=== PATIENT | male | born 1955 | race Caucasian/White ===

== ENCOUNTER 2020-08-16 10:46 | Inpatient (IN) ==
[2020-08-16] MEDS ORDERED: LIDOCAINE 1% 20 ML VIAL SQ ONE (10:47)
[2020-08-16] MEDS ORDERED: MIDAZOLAM 2 MG/2 ML VIAL ONE (10:59)
[2020-08-16] MEDS ORDERED: fentaNYL 100 MCG/2 ML VIAL IV ONE ×2 (10:59→15:14)
[2020-08-16] MEDS ORDERED: PIPERACILLIN SODIUM/TAZOBACTAM 3.375 GM in DEXTROSE 5% IN WATER 50 ML IV ONE (11:37)
[2020-08-16 12:52] LABS: Basophils # (Auto) 0.03 K/mcL (0.00-0.20); Basophils % (Auto) 0.3 % (0.0-2.0); Eosinophils % (Auto) 2.2 % (0.0-7.0); Hematocrit 37.4 % (41.0-55.0); Hemoglobin 12.2 g/dL (13.5-16.5); Lymphocytes # (Auto) 1.23 K/mcL (1.50-4.80); Lymphocytes % (Auto) 13.3 % (15.0-49.0); Mean Cell Volume 83.5 fL (80.0-100.0); Mean Corpuscular HGB Conc 32.6 g/dL (31.0-36.0); Mean Platelet Volume 10.7 fL (7.4-10.4); Monocytes % (Auto) 11.9 % (1.0-12.0); Neutrophils % (Auto) 72.3 % (38.0-78.0); Platelet Count 260 K/mcL (140-440); RBC 4.48 M/mcL (4.50-5.90); Red Cell Distribution Width 14.4 % (11.5-14.5); WBC 9.2 K/mcL (4.5-11.0)
[2020-08-16 13:31] LABS: ALT/SGPT 18 U/L (<40); AST/SGOT 23 U/L (<40); Albumin 3.5 gm/dL (3.2-5.2); Albumin/Globulin Ratio 0.9 (1.0-2.3); Alkaline Phosphatase 106 U/L (39-117); Bilirubin,Total 0.5 mg/dL (0.1-1.0); Blood Urea Nitrogen 15 mg/dL (8-23); Calcium 9.5 mg/dL (8.6-10.4); Carbon Dioxide 23 mmol/L (22-30); Chloride 102 mmol/L (96-108); Globulin 4.1 gm/dL (2.2-3.7); Glomerular Filtration Rate 94; Glucose 98 mg/dL (70-105)
[2020-08-16] MEDS ORDERED: MIDAZOLAM 2 MG/2 ML VIAL IV ONE (15:14)
[2020-08-16] MEDS ORDERED: ONDANSETRON 4 MG/2 ML VIAL IV PRN ×2 (16:10→16:41)
[2020-08-16] MEDS ORDERED: HYDROmorphone 0.5 MG/0.5 ML SYRINGE IV PRN (16:10)
--- NOTE | 2020-08-16 16:10 | Emergency Department Note ---
HPI General Chief complaint: Recheck/Abnormal Lab/Rx Stated complaint: cyst Time Seen by Provider: 08/16/20 10:57 Source: patient Mode of arrival: ambulatory Limitations: no limitations History of Present Illness HPI Narrative: Narrative: 65-year-old male presents stating that he was told by radiology to come to the ER for evaluation. Patient has no complaints today. States he feels fine. No abdominal pain. No nausea, vomiting, or diarrhea. No fever or chills. Patient apparently had a routine chest CT about [address] they noticed some sort of liver lesion. He then had a ultrasound that showed a liver mass and an ultrasound-guided biopsy was suggested. On 08-11-20 he had a needle biopsy of that mass. When results came back there was: Tissue present. For that reason they did a CT of the abdomen pelvis on 1213. At that time multiple hepatic cysts were present including an 8 cm 1 that was previously biopsied that they were concerned could be an abscess. For that reason they wanted him to come back in and be evaluated today and do drainage of that cyst. Patient is adamant that he is feeling fine and has no concerns. Related Data Home Medications Medication Instructions Recorded Confirmed aspirin 81 mg tablet,delayed 81 mg PO QDAY 07/01/19 08/16/20 release multivitamin with minerals 1 tab PO QAM tab 07/01/19 08/16/20 omega-3 fatty acids-fish oil 360 1 cap PO QDAY 07/01/19 08/16/20 mg-1,200 mg capsule Allergies Allergy/AdvReac Type Severity Reaction Status Date / Time No Known Drug Allergies Allergy Verified 08/16/20 10:49 Review of Systems ROS ROS Narrative: Narrative: All systems ED: reviewed and negative except as stated. PFSH Narrative Patient History Narrative: Narrative: Medical/Surgical/Family History All Active Problems (Updated 08/16/20 @ 16:10 by JOSHUA Hinojosa) Abdominal abscess (Acute) Encounter for Health Maintenance Examination in Adult (Chronic) Indigestion (Chronic) Tinea cruris (Chronic) Umbilical hernia (Chronic) Hyperlipidemia (Chronic) Ventral hernia (Chronic) Medical History Hyperlipidemia (Chronic) Indigestion (Chronic) Tinea cruris (Chronic) Umbilical hernia (Chronic) Ventral hernia (Chronic) Surgical History History of colonoscopy (Chronic ~07/2016) diverticuli and 2 tubular adenoma, to have repeat in five years History of umbilical hernia repair (Chronic) Family History Mother Heart disease Breast cancer Alcoholism Father Alcoholism Grandmother Breast cancer paternal Social History Smoking Status: Never smoker Alcohol Intake Frequency: 2+ drinks per day (He does drink 4-5 drinks a day.) Substance Use: does not use Exam Narrative Narrative: Narrative: General Limitations: no limitations General appearance: Present alert and in no apparent distress Head Head: Present atraumatic and normocephalic Eye Eye: Present normal appearance; Absent conjunctival injection ENT ENT: Present normal exam, normal oropharynx, mucous membranes moist and normal external ear exam Neck Neck: Present normal inspection and trachea midline; Absent lymphadenopathy Chest Chest: Present symmetric chest wall rise Respiratory Respiratory: Present normal lung sounds bilaterally; Absent respiratory distress, rales/crackles, wheezes, stridor and accessory muscle use Cardiovascular Cardiovascular: Present regular rate, normal rhythm and normal heart sounds Adbominal Abdominal: Present soft and normal bowel sounds; Absent distention, tenderness, guarding, rebound and rigidity Extremities Extremities: Present normal inspection; Absent pedal edema Neurological Neurological: Present alert and oriented X3 Psychiatric Psychiatric: Present normal affect and normal mood Skin Skin: Present warm (WNL), dry, intact and normal color; Absent rash Course Vital Signs Vital signs: Vital Signs Temperature 97.9 F 08/16/20 10:47 Pulse Rate 100 H 08/16/20 10:47 Respiratory Rate 18 08/16/20 10:47 Blood Pressure 154/92 08/16/20 10:47 Pulse Oximetry (%) 97 08/16/20 10:47 Temperature 97.9 F 08/16/20 10:47 Pulse Rate 90 08/16/20 15:05 Respiratory Rate 14 08/16/20 15:05 Blood Pressure 162/95 08/16/20 15:05 Pulse Oximetry (%) 96 08/16/20 15:05 [facility] MDM Narrative Medical decision making narrative: Narrative: Labs are unremarkable including a white count of 9.2. Patient has been asymptomatic throughout his stay. He did go down to radiology and had a drainage of this cyst like lesion on the liver. 225 mils of purulent drainage were drained and sent to the lab for analysis. At 1540 I did speak with Dr[address] Anthony, surgeon on-call. He would like this patient to be admitted, receive IV antibiotics, and close follow-up. We will treat any pain and nausea, provide IV fluids, IV antibiotics, and watch closely. He would like me to place transition orders which I will do and place patient on clear liquids today. Lab Data Lab results reviewed: Yes I reviewed the patient's lab results. Result diagrams: 08/16/20 11:46 08/16/20 11:46 Labs: Lab Results 08/16/20 08/16/20 08/16/20 Range/Units 11:46 11:46 11:46 WBC 9.2 (4.5-11.0) K/mcL RBC 4.48 L (4.50-5.90) M/mcL Hgb 12.2 L (13.5-16.5) g/dL Hct 37.4 L (41.0-55.0) % MCV 83.5 (80.0-100.0) fL MCH 27.2 (26.0-34.0) pg MCHC 32.6 (31.0-36.0) g/dL RDW 14.4 (11.5-14.5) % Plt Count 260 (140-440) K/mcL MPV 10.7 H (7.4-10.4) fL Neut % (Auto) 72.3 (38.0-78.0) % Lymph % (Auto) 13.3 L (15.0-49.0) % Summers % (Auto) 11.9 (1.0-12.0) % Eos % (Auto) 2.2 (0.0-7.0) % Baso % (Auto) 0.3 (0.0-2.0) % Lymph # (Auto) 1.23 L (1.50-4.80) K/mcL Summers # (Auto) 1.10 H (0.10-0.90) K/mcL Eos # (Auto) 0.20 (0.00-0.70) K/mcL Baso # (Auto) 0.03 (0.00-0.20) K/mcL Absolute Neutrophils 6.68 (1.80-8.00) K/mcL VBG Lactic Acid 0.9 (0.5-2.0) mmol/L Sodium 135 (133-145) mmol/L Potassium 4.0 (3.3-5.1) mmol/L Chloride 102 (96-108) mmol/L Carbon Dioxide 23 (22-30) mmol/L Anion Gap 10.0 (8.0-16.0) BUN 15 (8-23) mg/dL Creatinine 0.8 (0.7-1.2) mg/dL GFR Calculation 94 Glucose 98 (70-105) mg/dL Calcium 9.5 (8.6-10.4) mg/dL Total Bilirubin 0.5 (0.1-1.0) mg/dL AST 23 (<40) U/L ALT 18 (<40) U/L Alkaline Phosphatase 106 (39-117) U/L Total Protein 7.6 (5.9-8.4) gm/dL Albumin 3.5 (3.2-5.2) gm/dL Globulin 4.1 H (2.2-3.7) gm/dL Albumin/Globulin Ratio 0.9 L (1.0-2.3) Radiology Data Radiology results reviewed: Yes I reviewed the patient's radiology results. Discharge Plan Patient/Caregiver Discharge Instructions Pt seen by MAP CLERK/PA only: Yes Clinical Impression: Abdominal abscess Patient Disposition: Home, Self-Care Condition: Fair Follow up with: Ileana Anthony ARNP [Primary Care Provider] - Ladi Anthony MD [Physician] - Prescriptions: No Action multivitamin with minerals tablet 1 tab PO QAM RF: 0 aspirin [Adult Aspirin Regimen] 81 mg tablet,delayed release (DR/EC) 81 mg PO QDAY RF: 0 omega-3 fatty acids-fish oil [Fish Oil] 360-1,200 mg capsule 1 cap PO QDAY RF: 0
[2020-08-16] MEDS ORDERED: ACETAMINOPHEN 1,000 MG/100 ML BAG IV ONE (16:20)
--- NOTE | 2020-08-16 16:40 | General Surg History&Physical ---
HPI History of Present Illness Patient information: Note initiated : 08/16/20 at 4:30 pm Service Date, if different from initiated Date: [] Patient: Gaudencio Gray 65 y/o M admitted on for Cyst. Chief Complaint: [] Chief complaint: liver abscess with fever and bacteremia History of present illness: Mr. Gray is a 65 year old M admitted through the ER with new onset of infection. cYSTIC LESION OF THE RIGHT LOBE OF THE TITI ER.the patient gives a history of having finding of multiple cysts of the liver on routine evaluation. He had ultrasound done which showed a 7.8 cm solid mass of the inferior aspect of the right lobe of liver. Ultrasound-guided biopsy was done on August 21. Pathology on the biopsy showed sections of the colonic wall with muscle compatible with probable colonic injury. The patient returned to the ER for repeat CTabdomen and this showed new finding of gas in the cyst wall mass with wall thickening and inflammation of the perihepatic fat. This was drained today and about 150 cc of pus was removed. Reportedly, the cyst cavity was irrigated and drained. He now has an indwelling drain. His labs revealed white count of 9.2, hemoglobin 12.2, hematocrit 37.4, lactic acid 0.9, CMP is normal with normal liver panel. "Questioning the states that he's had fever, chills and sweats since Saturday of last week. She has recorded a peak temperature of 103, which she is treated with ibuprofen. On evaluation at this time, the patient is having shaking chills and has a temperature of 101.6. He has been started on Zosyn pending culture results and is admitted for treatment of bacteremia associated with a liver abscess. Review of Systems All systems: reviewed and no additional remarkable complaints except as stated ( patient has not had any symptoms of any kind except for mild indigestion prior to this event) PFS PFSH All Active Problems (Updated 08/16/20 @ 16:39 by Ladi Anthony MD) Acute onset sepsis (Acute) Abdominal abscess (Acute) Encounter for Health Maintenance Examination in Adult (Chronic) Indigestion (Chronic) Tinea cruris (Chronic) Umbilical hernia (Chronic) Hyperlipidemia (Chronic) Ventral hernia (Chronic) Medical History Hyperlipidemia (Chronic) Indigestion (Chronic) Tinea cruris (Chronic) Umbilical hernia (Chronic) Ventral hernia (Chronic) Surgical History History of colonoscopy (Chronic ~07/2016) diverticuli and 2 tubular adenoma, to have repeat in five years History of umbilical hernia repair (Chronic) Family History Mother Heart disease Breast cancer Alcoholism Father Alcoholism Grandmother Breast cancer paternal Social History household members: spouse marital status: smoking status: Never smoker alcohol intake frequency: 2+ drinks per day (He does drink 4-5 drinks a day.) substance use type: does not use MEDS/ALLERGIES Home Medications and Allergies Home Medications Medication Instructions Recorded Confirmed Type aspirin 81 mg tablet,delayed 81 mg PO QDAY 07/01/19 08/16/20 History release multivitamin with minerals 1 tab PO QAM tab 07/01/19 08/16/20 History omega-3 fatty acids-fish oil 360 1 cap PO QDAY 07/01/19 08/16/20 History mg-1,200 mg capsule Allergies Allergy/AdvReac Type Severity Reaction Status Date / Time No Known Drug Allergies Allergy Verified 08/16/20 10:49 Physical Examination Vital Signs Vital signs: Temp Pulse Resp BP Pulse Ox 101.6 F H 90 14 162/95 96 08/16/20 16:28 08/16/20 15:05 08/16/20 15:05 08/16/20 15:05 08/16/20 15:05 General physical appearance General physical exam: well developed, well nourished, moderate distress, no pain and other (shaking chills, fever) Eyes Eye exam: PERRL and normal ocular movement ENT ENT exam: normal pinna, normal nares, normal mucosa and no hearing loss Head Head exam IM: Present atraumatic, normal inspection and normocephalic Neck Neck exam: no masses, no bruits, trachea midline, no lymphadenopathy and no venous distension Cardiovascular Cardiovascular exam IM: Present normal rate and rhythm, RRR, +S1 and +S2; Absent JVD Respiratory Respiratory exam: normal expansion, normal respiratory effort and clear to auscultation Abdomen Abdomen: Present tender (mild tendinosis of right lateral abdomen and right upper quadrant; indwelling catheter is in the area with creamy yellow pus) Integumentary Integumentary: Present no rash, no growths and no abnormal pigmentation Neurologic Neurologic: Present normal coordination and normal sensation Musculoskeletal Musculoskeletal: Present normal gait and normal posture Psychiatric Psychiatric: Present oriented to time, oriented to person, oriented to place, speech is normal and memory intact Results Labs Result diagrams: 08/16/20 11:46 08/16/20 11:46 Labs: Abnormal lab results 08/16/20 08/16/20 Range/Units 11:46 11:46 RBC 4.48 L (4.50-5.90) M/mcL Hgb 12.2 L (13.5-16.5) g/dL Hct 37.4 L (41.0-55.0) % MPV 10.7 H (7.4-10.4) fL Lymph % (Auto) 13.3 L (15.0-49.0) % Lymph # (Auto) 1.23 L (1.50-4.80) K/mcL Otero # (Auto) 1.10 H (0.10-0.90) K/mcL Globulin 4.1 H (2.2-3.7) gm/dL Albumin/Globulin Ratio 0.9 L (1.0-2.3) Diabetes panel 08/16/20 Range/Units 11:46 Sodium 135 (133-145) mmol/L Potassium 4.0 (3.3-5.1) mmol/L Chloride 102 (96-108) mmol/L Carbon Dioxide 23 (22-30) mmol/L BUN 15 (8-23) mg/dL Creatinine 0.8 (0.7-1.2) mg/dL Glucose 98 (70-105) mg/dL Calcium 9.5 (8.6-10.4) mg/dL AST 23 (<40) U/L ALT 18 (<40) U/L Alkaline Phosphatase 106 (39-117) U/L Total Protein 7.6 (5.9-8.4) gm/dL Albumin 3.5 (3.2-5.2) gm/dL Calcium panel 08/16/20 Range/Units 11:46 Calcium 9.5 (8.6-10.4) mg/dL Albumin 3.5 (3.2-5.2) gm/dL Pituitary panel 08/16/20 Range/Units 11:46 Sodium 135 (133-145) mmol/L Potassium 4.0 (3.3-5.1) mmol/L Chloride 102 (96-108) mmol/L Carbon Dioxide 23 (22-30) mmol/L BUN 15 (8-23) mg/dL Creatinine 0.8 (0.7-1.2) mg/dL Glucose 98 (70-105) mg/dL Calcium 9.5 (8.6-10.4) mg/dL Adrenal panel 08/16/20 Range/Units 11:46 Sodium 135 (133-145) mmol/L Potassium 4.0 (3.3-5.1) mmol/L Chloride 102 (96-108) mmol/L Carbon Dioxide 23 (22-30) mmol/L BUN 15 (8-23) mg/dL Creatinine 0.8 (0.7-1.2) mg/dL Glucose 98 (70-105) mg/dL Calcium 9.5 (8.6-10.4) mg/dL Total Bilirubin 0.5 (0.1-1.0) mg/dL AST 23 (<40) U/L ALT 18 (<40) U/L Alkaline Phosphatase 106 (39-117) U/L Total Protein 7.6 (5.9-8.4) gm/dL Albumin 3.5 (3.2-5.2) gm/dL All other labs normal. A/P Assessment and plan (1) Abdominal abscess: Status: Acute (2) Acute onset sepsis: Status: Acute Narrative A/P Narrative: IV hydration. Zosyn 3.375 g IV every 6 hours. Monitor drainage. The abscess cavity. Post follow-up of cultures of the drainage and modify antibiotics as needed. Follow-up CT in 3 days to confirm continued collapse of the liver abscess Time Spent With Patient Time: Total time spent is greater than 50% in coordination of care (as documented) at patient's floor/unit and/or counseling patient:
--- NOTE | 2020-08-16 17:38 | Cat Scan Report ---
CLINICAL INFORMATION: 9 cm abscess in the inferior right hepatic lobe. COMPARISON: Abdomen and pelvic CT 08/15/2020 TECHNIQUE: The procedure and risks including the possibility of bleeding, infection, bowel/ lung perforation and inadequate abscess drainage were explained to the patient. He understood and wished to proceed. He was medicated prior to and during the procedure with 2 mg of versed and 100 mg of fentanyl given intravenously in divided doses. He maintained consciousness during the procedure and blood pressure pulse oximeter monitor. Total sedation time 35 minutes. With the patient in supine position, the 10 cm abscess and the inferior right hepatic lobe was first CT localized. The skin overlying the abscess was marked, prepped and locally anesthetized 1% lidocaine the level of the abscess capsule using a 25-gauge needle. A 17-gauge styletted needle was advanced under CT guidance in the central aspect of the abscess. Approximately 5 cc of purulent fluid was aspirated and sent for Gram stain culture and sensitivity. A 0.035 J-wire was coiled in the abscess cavity and the tract was subsequently dilated to 12 Sammarinese. A 12 Sammarinese pigtail catheter was then placed over the wire into the cavity and approximately 150 cc of purulent fluid was aspirated. The cavity was then irrigated with 4-5 30 cc aliquots of saline. The tube was left to gravity bag drainage and sutured to the skin. Post procedure scanning shows the tube centrally positioned within the collapsed cavity IMPRESSION: Successful CT-guided percutaneous drainage of 10 cm abscess - inferior right hepatic lobe. 150 cc of purulent fluid was aspirated and sent for Gram stain culture and sensitivity. Final imaging shows complete collapse of the abscess within the tube within the central cavity. The patient will be admitted for observation and irrigation of the tube with 10 cc normal sterile saline every eight hours. He can be discharged to home health care for the two. Suggest: abdominal CT when the patient is afebrile and the tube drainage is less than 5 cc over 24 hour. Interpreted and Authenticated by: Brayden Kimbrough 08/16/20
[2020-08-16] MEDS: 0.9 % SODIUM CHLORIDE 1,000 ML IV SCH (18:04)
[2020-08-16] MEDS: PIPERACILLIN SODIUM/TAZOBACTAM 3.375 GM in DEXTROSE 5% IN WATER 50 ML IV SCH (18:24)
[2020-08-16] MEDS: DOCUSATE SODIUM 100 MG CAPSULE PO SCH (22:30)
[2020-08-16] MEDS: SENNOSIDES 1 TABLET PO SCH (22:30)
[2020-08-16] MEDS: ACETAMINOPHEN 1,000 MG/100 ML BAG IV SCH (22:30)
[2020-08-16] MEDS: 0.9 % SODIUM CHLORIDE 10 ML SYRINGE IV SCH (22:31)
[2020-08-17] MEDS: 0.9 % SODIUM CHLORIDE 1,000 ML IV SCH ×4 (03:16→23:19)
[2020-08-17] MEDS: ACETAMINOPHEN 1,000 MG/100 ML BAG IV SCH ×4 (04:58→23:20)
[2020-08-17] MEDS: 0.9 % SODIUM CHLORIDE 10 ML SYRINGE IV SCH ×3 (06:04→20:26)
[2020-08-17] MEDS: PIPERACILLIN SODIUM/TAZOBACTAM 3.375 GM in DEXTROSE 5% IN WATER 50 ML IV SCH ×4 (06:04→17:23)
[2020-08-17 06:57] LABS: Basophils # (Auto) 0.03 K/mcL (0.00-0.20); Basophils % (Auto) 0.2 % (0.0-2.0); Eosinophils # (Auto) 0.02 K/mcL (0.00-0.70); Eosinophils % (Auto) 0.1 % (0.0-7.0); Hematocrit 33.4 % (41.0-55.0); Hemoglobin 11.4 g/dL (13.5-16.5); Lymphocytes # (Auto) 0.73 K/mcL (1.50-4.80); Lymphocytes % (Auto) 5.2 % (15.0-49.0); Mean Cell Volume 82.1 fL (80.0-100.0); Mean Corpuscular HGB Conc 34.1 g/dL (31.0-36.0); Mean Platelet Volume 10.6 fL (7.4-10.4); Monocytes # (Auto) 0.92 K/mcL (0.10-0.90); Monocytes % (Auto) 6.6 % (1.0-12.0); Neutrophils % (Auto) 87.9 % (38.0-78.0); Platelet Count 272 K/mcL (140-440); RBC 4.07 M/mcL (4.50-5.90); Red Cell Distribution Width 14.1 % (11.5-14.5)
[2020-08-17 07:43] LABS: ALT/SGPT 15 U/L (<40); AST/SGOT 15 U/L (<40); Albumin 2.9 gm/dL (3.2-5.2); Albumin/Globulin Ratio 0.9 (1.0-2.3); Alkaline Phosphatase 96 U/L (39-117); Bilirubin,Direct 0.4 mg/dL (<0.3); Bilirubin,Total 1.1 mg/dL (0.1-1.0); Blood Urea Nitrogen 11 mg/dL (8-23); Calcium 8.7 mg/dL (8.6-10.4); Carbon Dioxide 22 mmol/L (22-30); Chloride 100 mmol/L (96-108); Globulin 3.4 gm/dL (2.2-3.7); Glomerular Filtration Rate 94; Glucose 109 mg/dL (70-105); Lactate Dehydrogenase 132 U/L (135-225); Triglycerides 77 mg/dL (<150); Uric Acid 2.6 mg/dL (2.5-8.0)
[2020-08-17] MEDS: DOCUSATE SODIUM 100 MG CAPSULE PO SCH ×2 (10:16→20:26)
--- NOTE | 2020-08-17 16:24 | General Surgery Progress Note ---
SUBJECTIVE Subjective Patient information: Note initiated : 08/17/20 at 4:23 pm Service Date, if different from initiated Date: [] Patient: Gaudencio Gray 65 y/o M admitted on 08/16/20 for Cyst. Chief Complaint: [] Principal diagnosis: hepatic abscess; acute septicemia Interval history: patient states that he feels better. He has temperature elevation to 102.7 last evening but is now down to 99.3. He is no longer having fever, chills or sweats. There is minimal drainage through his hepatic catheter. White blood count 14,000, hemoglobin 11.4, hematocrit 33.4. Constitutional Vitals: Vital Signs Temp Pulse Resp BP Pulse Ox 99.1 F H 81 20 129/79 94 08/17/20 15:31 08/17/20 12:00 08/17/20 08:00 08/17/20 12:00 08/17/20 12:00 Period Temp Pulse Resp BP Sys/Izquierdo Pulse Ox Last 24 Hr 97.7 F-103.1 F 81-113 -20 124-149/74-85 91-94 Intake and Output 08/17/20 08/17/20 08/17/20 05:59 13:59 21:59 Intake Total 1370 1950 Output Total 655 350 5 Balance 715 1600 -5 Weight 194 lb 9.6 oz Patient Weight 08/18/20 05:59 Weight 194 lb 9.6 oz Intake & Output: Intake & Output 08/17/20 08/17/20 08/17/20 05:59 13:59 21:59 Intake Total 1370 1950 Output Total 655 350 5 Balance 715 1600 -5 Weight 194 lb 9.6 oz Intake: IV 1170 1150 Sodium Chloride 0.9% 1,000 ml @ 920 1000 100 mls/hr IV .Q10H YAO Rx#: [id number] Zosyn 3.375 gm In Dextrose 5% 50 50 in Water 50 ml @ 100 mls/hr IV Q6H YAO Rx#:[id number] Oral 200 800 Output: Drainage 5 Right Abdomen Percutaneous 5 Drainage 5 Right Abdomen Percutaneous 5 Void Amount 650 350 Other: Urine Appearance Clear Clear Urine Color Bright Yellow Light Alexa Urine Odor Normal Head Head exam: Present atraumatic, normal inspection and normocephalic Eye Eye exam: Present EOMI Pupils: Present normal accommodation and PERRL ENT ENT exam: Present normal exam and normal oropharynx Neck Neck exam: Present full ROM and normal inspection; Absent lymphadenopathy Respiratory Respiratory exam: Present normal respiratory exam and CTAB; Absent rales, rhonchi and wheezes Cardiovascular Cardiovascular exam: Present normal rate and rhythm, RRR, +S1 and +S2; Absent JVD GI/Abdominal GI/Abdominal exam: Present normal bowel sounds, soft and tenderness (mild tenderness around the catheter insertion site. Right lower chest wall. Modest amount of purulent drainage noted in catheter); Absent distended and mass Extremities Exam Extremities exam: Present full ROM, normal inspection and neurovascular intact Neurological Exam Neurological exam: Present alert, CN II-XII intact and oriented X3; Absent motor sensory deficit and normal gait Psychiatric Psychiatric exam: Present normal mood; Absent anxious and depressed Skin Skin exam: Present normal color A/P Assessment and plan (1) Acute onset sepsis: Status: Acute (2) Abscess, hepatic: Status: Acute Narrative A/P Narrative: continue IV antibiotics. Advanced to regular diet. We'll probably repeat ultrasound or CT on Saturday. Time Spent With Patient Time: Total time spent is greater than 50% in coordination of care (as documented) at patient's floor/unit and/or counseling patient:
[2020-08-17] MEDS: SENNOSIDES 1 TABLET PO SCH (20:26)
[2020-08-18] MEDS: PIPERACILLIN SODIUM/TAZOBACTAM 3.375 GM in DEXTROSE 5% IN WATER 50 ML IV SCH ×4 (00:35→17:56)
[2020-08-18] MEDS: 0.9 % SODIUM CHLORIDE 1,000 ML IV SCH ×3 (03:43→21:36)
[2020-08-18] MEDS: ACETAMINOPHEN 1,000 MG/100 ML BAG IV SCH ×4 (04:41→23:00)
[2020-08-18] MEDS: 0.9 % SODIUM CHLORIDE 10 ML SYRINGE IV SCH ×3 (04:41→21:37)
[2020-08-18 06:57] LABS: Basophils # (Auto) 0.04 K/mcL (0.00-0.20); Basophils % (Auto) 0.3 % (0.0-2.0); Eosinophils # (Auto) 0.15 K/mcL (0.00-0.70); Eosinophils % (Auto) 0.9 % (0.0-7.0); Hematocrit 31.7 % (41.0-55.0); Hemoglobin 10.5 g/dL (13.5-16.5); Lymphocytes # (Auto) 1.19 K/mcL (1.50-4.80); Lymphocytes % (Auto) 7.5 % (15.0-49.0); Mean Cell Volume 82.6 fL (80.0-100.0); Mean Corpuscular HGB Conc 33.1 g/dL (31.0-36.0); Mean Platelet Volume 10.9 fL (7.4-10.4); Monocytes # (Auto) 1.21 K/mcL (0.10-0.90); Monocytes % (Auto) 7.6 % (1.0-12.0); Neutrophils % (Auto) 83.7 % (38.0-78.0); Platelet Count 281 K/mcL (140-440); RBC 3.84 M/mcL (4.50-5.90); Red Cell Distribution Width 14.3 % (11.5-14.5); WBC 15.8 K/mcL (4.5-11.0)
[2020-08-18 07:49] LABS: ALT/SGPT 11 U/L (<40); AST/SGOT 13 U/L (<40); Albumin 2.5 gm/dL (3.2-5.2); Albumin/Globulin Ratio 0.7 (1.0-2.3); Alkaline Phosphatase 102 U/L (39-117); Bilirubin,Direct 0.3 mg/dL (<0.3); Bilirubin,Total 0.9 mg/dL (0.1-1.0); Blood Urea Nitrogen 10 mg/dL (8-23); Calcium 8.5 mg/dL (8.6-10.4); Carbon Dioxide 22 mmol/L (22-30); Chloride 100 mmol/L (96-108); Globulin 3.5 gm/dL (2.2-3.7); Glomerular Filtration Rate 99; Glucose 95 mg/dL (70-105); Lactate Dehydrogenase 148 U/L (135-225); Phosphorous 2.6 mg/dL (2.5-4.5); Triglycerides 83 mg/dL (<150); Uric Acid 2.1 mg/dL (2.5-8.0)
[2020-08-18] MEDS: DOCUSATE SODIUM 100 MG CAPSULE PO SCH ×2 (08:40→21:37)
--- NOTE | 2020-08-18 15:46 | General Surgery Progress Note ---
SUBJECTIVE Subjective Patient information: Note initiated : 08/18/20 at 3:41 pm Service Date, if different from initiated Date: [] Patient: Gaudencio Gray 65 y/o M admitted on 08/16/20 for Cyst. Chief Complaint: [] Principal diagnosis: hepatic abscess; acute septicemia Interval history: patient states he feels much better. He denies nausea, and he no longer has chills. White blood count 15.8, hemoglobin 10.5, hematocrit 3 1.7. The drainage from the abscess is much better and much clearer than on yesterday's. Constitutional Vitals: Vital Signs Temp Pulse Resp BP Pulse Ox 98.2 F 86 20 145/89 95 08/18/20 12:00 08/18/20 12:00 08/18/20 12:00 08/18/20 12:00 08/18/20 12:00 Period Temp Pulse Resp BP Sys/Izquierdo Pulse Ox Last 24 Hr 97.4 F-101.3 F 84-103 20-20 129-147/77-89 92-97 Intake and Output 08/18/20 08/18/20 08/18/20 05:59 13:59 21:59 Intake Total 1370 450 150 Output Total 970 Balance 400 450 150 Intake & Output: Intake & Output 08/18/20 08/18/20 08/18/20 05:59 13:59 21:59 Intake Total 1370 450 150 Output Total 970 Balance 400 450 150 Intake: IV 1250 50 150 Sodium Chloride 0.9% 1,000 ml @ 1000 100 mls/hr IV .Q10H YAO Rx#: [id number] Zosyn 3.375 gm In Dextrose 5% 50 50 50 in Water 50 ml @ 100 mls/hr IV Q6H YAO Rx#:[id number] Oral 100 400 Input, Drain Irrigation Amount 20 Right LIDIA Drain 20 Output: Drainage 20 Right LIDIA Drain 20 Void Amount 950 Other: Urine Appearance Clear Urine Color Bright Yellow Stool Size Large Stool Consistency Liquid Watery # Voids 1 # Bowel Movements 1 Head Head exam: Present atraumatic, normal inspection and normocephalic Eye Eye exam: Present EOMI Pupils: Present normal accommodation and PERRL ENT ENT exam: Present normal exam and normal oropharynx Neck Neck exam: Present full ROM and normal inspection; Absent lymphadenopathy Respiratory Respiratory exam: Present normal respiratory exam and CTAB; Absent rales, rhonchi and wheezes Cardiovascular Cardiovascular exam: Present normal rate and rhythm, RRR, +S1 and +S2; Absent JVD GI/Abdominal GI/Abdominal exam: Present normal bowel sounds, soft and tenderness (mild tenderness around the catheter insertion site. Right lower chest wall. Modest amount of purulent drainage noted in catheter); Absent distended and mass Extremities Exam Extremities exam: Present full ROM, normal inspection and neurovascular intact Neurological Exam Neurological exam: Present alert, CN II-XII intact and oriented X3; Absent motor sensory deficit and normal gait Psychiatric Psychiatric exam: Present normal mood; Absent anxious and depressed Skin Skin exam: Present normal color A/P Assessment and plan (1) Abscess, hepatic: Status: Acute (2) Acute onset sepsis: Status: Acute Narrative A/P Narrative: continue IV antibiotics. Follow-up abdominal ultrasound Advanced regular diet Time Spent With Patient Time: Total time spent is greater than 50% in coordination of care (as documented) at patient's floor/unit and/or counseling patient:
[2020-08-18] MEDS: SENNOSIDES 1 TABLET PO SCH (21:37)
[2020-08-19] MEDS: 0.9 % SODIUM CHLORIDE 10 ML SYRINGE IV SCH ×2 (04:08→14:26)
[2020-08-19] MEDS: 0.9 % SODIUM CHLORIDE 1,000 ML IV SCH (05:01)
[2020-08-19] MEDS: ACETAMINOPHEN 1,000 MG/100 ML BAG IV SCH ×2 (05:40→10:54)
[2020-08-19] MEDS: PIPERACILLIN SODIUM/TAZOBACTAM 3.375 GM in DEXTROSE 5% IN WATER 50 ML IV SCH ×3 (06:00→11:47)
[2020-08-19] MEDS: DOCUSATE SODIUM 100 MG CAPSULE PO SCH (11:03)
--- NOTE | 2020-08-19 11:14 | Ultrasound Report ---
CLINICAL INFORMATION: follow-up of right hepatic abscess drainage COMPARISON: None. FINDINGS: Gallbladder wall shows minimal diffuse thickening with scattered wall calcifications compatible adenomyomatosis.. Common bile duct is normal - 5 mm. Scattered simple cysts throughout both kidneys are unchanged. The abscess in the inferior right hepatic lobe is completely collapsed with no residual fluid. Tube is identified within the collapsed abscess cavity. Both kidneys, spleen, aorta and pancreas are normal. No free fluid IMPRESSION: Resolution in abscess - inferior right hepatic lobe. The drainage catheter will be removed. Tube output is less than 5 cc over the past 24 hours Minimal gallbladder wall thickening with scattered calcification in the gallbladder wall most compatible with adenomyomatosis Interpreted and Authenticated by: Brayden Kimbrough 08/19/20
--- NOTE | 2020-08-19 11:38 | Non-GYN Cytology Report ---
Non Bonderizer Cytology NG Diagnosis LIVER, ABSCESS, FINE NEEDLE ASPIRATION: -- NECROTIC DEBRIS. -- NO FUNGAL ORGANISMS OR ACID-FAST BACTERIA IDENTIFIED (GMS AND AFB STAINS WITH ADEQUATE TECHNICAL CONTROL). -- NO ATYPICAL OR MALIGNANT CELLS IDENTIFIED. (RLF:sln) NG Micro Description ThinPrep and cell block slides are examined and demonstrate acellular debris and possible red blood cells. AFB and GMS stains are performed (cell block) and demonstrate no acid-fast bacteria or fungal organisms. No atypical or malignant cells are identified. NG Gross Description Received 100 mL mann brown thick fluid. Electronically Signed Felicia Rolle MD, FCAP Electronically Signed 08/19/2020 10:40 AM
[2020-08-19 13:03] LABS: ALT/SGPT 11 U/L (<40); AST/SGOT 14 U/L (<40); Albumin 2.4 gm/dL (3.2-5.2); Albumin/Globulin Ratio 0.7 (1.0-2.3); Alkaline Phosphatase 108 U/L (39-117); Bilirubin,Direct 0.2 mg/dL (<0.3); Bilirubin,Total 0.5 mg/dL (0.1-1.0); Blood Urea Nitrogen 10 mg/dL (8-23); Calcium 8.4 mg/dL (8.6-10.4); Carbon Dioxide 23 mmol/L (22-30); Chloride 104 mmol/L (96-108); Globulin 3.6 gm/dL (2.2-3.7); Glomerular Filtration Rate 99; Glucose 94 mg/dL (70-105); Lactate Dehydrogenase 217 U/L (135-225); Phosphorous 3.3 mg/dL (2.5-4.5); Triglycerides 93 mg/dL (<150); Uric Acid 2.2 mg/dL (2.5-8.0)
[2020-08-19 13:19] LABS: Basophils # (Auto) 0.04 K/mcL (0.00-0.20); Basophils % (Auto) 0.3 % (0.0-2.0); Eosinophils # (Auto) 0.27 K/mcL (0.00-0.70); Hematocrit 32.8 % (41.0-55.0); Hemoglobin 10.7 g/dL (13.5-16.5); Lymphocytes # (Auto) 1.17 K/mcL (1.50-4.80); Lymphocytes % (Auto) 8.6 % (15.0-49.0); Mean Cell Volume 83.9 fL (80.0-100.0); Mean Corpuscular HGB Conc 32.6 g/dL (31.0-36.0); Monocytes # (Auto) 1.31 K/mcL (0.10-0.90); Monocytes % (Auto) 9.6 % (1.0-12.0); Neutrophils % (Auto) 79.5 % (38.0-78.0); Platelet Count 302 K/mcL (140-440); RBC 3.91 M/mcL (4.50-5.90); Red Cell Distribution Width 14.6 % (11.5-14.5); WBC 13.6 K/mcL (4.5-11.0)
--- NOTE | 2020-08-19 15:16 | Discharge Summary ---
Discharge Provider Provider Patient information: Note initiated : 08/19/20 at 3:13 pm Service Date, if different from initiated Date: [] Patient: Gaudencio Gray 65 y/o M admitted on 08/16/20 for Cyst. Chief Complaint: [] Date of admission: 08/16/20 17:20 Discharge date: 08/19/20 Primary care physician: Ileana Anthony Admitting clinician: Ladi Anthony Attending physician on admission: Ladi Anthony Consults: 08/16/20 15:41 Consult to Physician [CONS] Stat Comment: Consulting Provider: Ladi Anthony Reason For Exam: Attending physician on discharge: Ladi Anthony Discharging clinician: Ladi Anthony COURSE Hospital Course Hospital course: 65-year-old male who is admitted with suspected sepsis from hepatic abscess status post percutaneous needle biopsy. The patient was noted to have multiple cystic lesions of the liver with a solid lesion right lobe of the liver On follow-up CT.A percutaneous needle biopsy was performed . The pathology showed colonic mucosa and striated muscle, compatible with COLON biopsy. A follow-up CT was done which showed enlargement of the mass with associated free air and thickening of the wall compatible with infection. About 250 cc of purulence was removed and the catheter was left in place. The patient was admitted after he developed fever, chills with temperatures up to 103degrees after admission he was treated with Zosyn pending cultures. Cultures never returned and search today reveals that AFB stains were done on the fluid, but routine cultures were not done. The patient has gradually improved. His white count peaked at 15,000, but is now at 12,400. He was seen by radiology earlier today. An ultrasound shows collapse of the cavity so the catheter was removed. The patient is stable for discharge home and will be treated with another week of ciprofloxacin and metronidazole. Discharge diagnosis: acute septicemia Secondary discharge diagnosis: hepatic abscess Reason for admission: sepsis post drainage of hepatic abscess Procedures: none Pertinent studies/significant findings: ultrasound of the upper abdomen Complications: none Time Spent with Patient Time attestation: Total time spent providing and/or coordinating discharge services: Physical Examination Vital Signs Vital signs: Temp Pulse Resp BP Pulse Ox 98.3 F 90 16 154/86 95 08/19/20 12:00 08/19/20 12:00 08/19/20 12:00 08/19/20 12:00 08/19/20 12:00 General physical appearance General physical exam: well developed, well nourished, no distress, no pain and other (shaking chills, fever) Eyes Eye exam: PERRL and normal ocular movement ENT ENT exam: normal pinna, normal nares, normal mucosa and no hearing loss Head Head exam IM: Present atraumatic, normal inspection and normocephalic Cardiovascular Cardiovascular exam IM: Present normal rate and rhythm, RRR, +S1 and +S2; Absent JVD Respiratory Respiratory exam: normal expansion, normal respiratory effort and clear to auscultation Abdomen Abdomen: Present tender (minimal tenderness around port site) Integumentary Integumentary: Present no rash, no growths and no abnormal pigmentation Psychiatric Psychiatric: Present oriented to time, oriented to person, oriented to place, speech is normal and memory intact Discharge Plan Patient/Caregiver Discharge Instructions Activity: increase activity as tolerated Diet: Regular Diet Prescriptions: New ciprofloxacin HCl [ciprofloxacin HCl] 500 MG tablet 500 mg PO BID PRN (Reason: septicemia) Qty: 20 RF: 0 metronidazole 500 mg tablet 500 mg PO TID Qty: 30 RF: 0 No Action multivitamin with minerals tablet 1 tab PO QAM RF: 0 aspirin [Adult Aspirin Regimen] 81 mg tablet,delayed release (DR/EC) 81 mg PO QDAY RF: 0 omega-3 fatty acids-fish oil [Fish Oil] 360-1,200 mg capsule 1 cap PO QDAY RF: 0 Follow Up Plan Follow up with: Ladi Anthony MD [Physician] - (FOLLOW-UP IN THE OFFICE. LOCUMS SURGEON IN 7-10 DAYS Repeat ultrasound in 7-10 days) Ileana Anthony ARNP [Primary Care Provider] - Patient Disposition: Home, Self-Care Prognosis: Good Rehab Potential: Good I certify that the patient requires SNF services: No Overall status at discharge: patient is progressing back to baseline Discharge Orders: Discharge Order (Routine); Ordered 08/19/20 Ordered By: Ladi Anthony Pending Pending Pending: Resuscitation Status Full Code Diet Regular Diet Start SatAug 18 155 Docusate Sodium (Colace) 100 mg PO BID YAO Last Admin: 08/19/20 11:03 Dose: 100 mg Documented by: Admin: 08/18/20 21:37 Dose: Not Given Documented by: Admin: 08/18/20 08:40 Dose: 100 mg Documented by: Admin: 08/17/20 20:26 Dose: Not Given Documented by: Admin: 08/17/20 10:16 Dose: 100 mg Documented by: Admin: 08/16/20 22:30 Dose: Not Given Documented by: PEGGY Sodium Chloride (Sodium Chloride 0.9%) 1,000 mls @ 100 mls/hr IV .Q10H YAO Last Admin: 08/19/20 05:01 Dose: 100 mls/hr Documented by: Infusion: 08/19/20 02:44 Dose: 100 mls/hr Documented by: Admin: 08/18/20 21:36 Dose: Not Given Documented by: Admin: 08/18/20 16:44 Dose: 100 mls/hr Documented by: Infusion: 08/18/20 13:43 Dose: 100 mls/hr Documented by: Admin: 08/18/20 03:43 Dose: 100 mls/hr Documented by: Infusion: 08/18/20 01:29 Dose: 100 mls/hr Documented by: Admin: 08/17/20 23:19 Dose: Not Given Documented by: Admin: 08/17/20 15:29 Dose: 100 mls/hr Documented by: Admin: 08/17/20 14:27 Dose: Not Given Documented by: Infusion: 08/17/20 13:16 Dose: 100 mls/hr Documented by: Admin: 08/17/20 03:16 Dose: 100 mls/hr Documented by: Infusion: 08/17/20 03:16 Dose: 0 mls/hr Documented by: Admin: 08/16/20 18:04 Dose: 100 mls/hr Documented by: JAYY Piperacillin Sod/Tazobactam (Sod 3.375 gm/ Dextrose) 50 mls @ 100 mls/hr IV Q6H YAO; Protocol Last Infusion: 08/19/20 13:04 Dose: 0 mls/hr Documented by: Admin: 08/19/20 11:47 Dose: 100 mls/hr Documented by: Infusion: 08/19/20 06:30 Dose: 0 mls/hr Documented by: [email or web address] Admin: 08/19/20 06:00 Dose: 100 mls/hr Documented by: [email or web address] Infusion: 08/19/20 00:45 Dose: 0 mls/hr Documented by: [email or web address] Admin: 08/19/20 00:00 Dose: 100 mls/hr Documented by: Infusion: 08/18/20 18:26 Dose: 100 mls/hr Documented by: Admin: 08/18/20 17:56 Dose: 100 mls/hr Documented by: [email or web address] Infusion: 08/18/20 15:00 Dose: 0 mls/hr Documented by: [email or web address] Admin: 08/18/20 14:19 Dose: 100 mls/hr Documented by: [email or web address] Infusion: 08/18/20 06:30 Dose: 0 mls/hr Documented by: Admin: 08/18/20 05:52 Dose: 100 mls/hr Documented by: Infusion: 08/18/20 01:05 Dose: 100 mls/hr Documented by: Admin: 08/18/20 00:35 Dose: 100 mls/hr Documented by: Infusion: 08/17/20 17:53 Dose: 100 mls/hr Documented by: Admin: 08/17/20 17:23 Dose: 100 mls/hr Documented by: Infusion: 08/17/20 13:27 Dose: 100 mls/hr Documented by: Admin: 08/17/20 12:57 Dose: 100 mls/hr Documented by: Infusion: 08/17/20 06:45 Dose: 0 mls/hr Documented by: Admin: 08/17/20 06:04 Dose: 100 mls/hr Documented by: Infusion: 08/17/20 00:30 Dose: 100 mls/hr Documented by: Admin: 08/17/20 00:00 Dose: 100 mls/hr Documented by: Infusion: 08/16/20 18:54 Dose: 100 mls/hr Documented by: Admin: 08/16/20 18:24 Dose: 100 mls/hr Documented by: JAYY Acetaminophen (Ofirmev) 1,000 mg in 100 mls @ 200 mls/hr IV Q6H YAO Stop: 08/19/20 23:59 Last Infusion: 08/19/20 11:28 Dose: 0 mls/hr Documented by: [email or web address] Admin: 08/19/20 10:54 Dose: 200 mls/hr Documented by: [email or web address] Infusion: 08/19/20 06:21 Dose: 0 mls/hr Documented by: [email or web address] Admin: 08/19/20 05:40 Dose: 200 mls/hr Documented by: Infusion: 08/18/20 23:30 Dose: 200 mls/hr Documented by: Admin: 08/18/20 23:00 Dose: 200 mls/hr Documented by: Infusion: 08/18/20 17:20 Dose: 0 mls/hr Documented by: [email or web address] Admin: 08/18/20 16:40 Dose: 200 mls/hr Documented by: [email or web address] Infusion: 08/18/20 14:11 Dose: 0 mls/hr Documented by: [email or web address] Admin: 08/18/20 10:56 Dose: 200 mls/hr Documented by: [email or web address] Infusion: 08/18/20 05:15 Dose: 0 mls/hr Documented by: [email or web address] Admin: 08/18/20 04:41 Dose: 200 mls/hr Documented by: Infusion: 08/18/20 00:00 Dose: 0 mls/hr Documented by: Admin: 08/17/20 23:20 Dose: 200 mls/hr Documented by: [email or web address] Infusion: 08/17/20 18:34 Dose: 0 mls/hr Documented by: [email or web address] Admin: 08/17/20 17:22 Dose: 200 mls/hr Documented by: Infusion: 08/17/20 12:10 Dose: 0 mls/hr Documented by: Admin: 08/17/20 11:22 Dose: 200 mls/hr Documented by: Infusion: 08/17/20 05:28 Dose: 200 mls/hr Documented by: Admin: 08/17/20 04:58 Dose: 200 mls/hr Documented by: Infusion: 08/16/20 23:54 Dose: 0 mls/hr Documented by: Admin: 08/16/20 22:30 Dose: 200 mls/hr Documented by: PEGGY Senna (Senokot) 2 tab PO HS [facility] Last Admin: 08/18/20 21:37 Dose: Not Given Documented by: Admin: 08/17/20 20:26 Dose: Not Given Documented by: Admin: 08/16/20 22:30 Dose: Not Given Documented by: PEGGY Sodium Chloride (Saline Flush) 10 ml IV Q8 [facility] Last Admin: 08/19/20 14:26 Dose: Not Given Documented by: Admin: 08/19/20 04:08 Dose: Not Given Documented by: Admin: 08/18/20 21:37 Dose: Not Given Documented by: Admin: 08/18/20 15:29 Dose: Not Given Documented by: Admin: 08/18/20 04:41 Dose: Not Given Documented by: Admin: 08/17/20 20:26 Dose: Not Given Documented by: Admin: 08/17/20 15:29 Dose: 10 ml Documented by: Admin: 08/17/20 06:04 Dose: Not Given Documented by: Admin: 08/16/20 22:31 Dose: Not Given Documented by: PEGGY Shift Summary 08/19/20 04:08 Shift Summary by Ruth De The patient is alert and oriented times four, he is up with 1 SBA with a steady gait and requires assistance with IV pole management and has pari hose bilaterally with non-skid socks. He has denied pain this shift or rated it no greater than a tolerable 2/10 level, he is receiving scheduled Acetaminophen IV and has NS infusing at 100 ml/hr into a 20 gauge right AC. He had a liver biopsy last week and developed an abscess and sepsis and has a pigtail drain present that was placed with a LIDIA bulb that requires sterile NS instillation and drainage to gravity to the right lower chest wall region. He has mild tenderness around the catheter insertion site and the dressing is CDI and scant output of skaggs fluid. He is voiding light werner urine via urinal or unmeasured voids via restroom with 2 loose stools, HS stool softeners held per patient request. Zosyn every 6 hours, HR may run in 50s to 100s, Tmax 99.8 at start of shift. Plan is to have a repeat CT and possible D/C today, will update shift summary report at bedside. Initialized on 08/19/20 04:08 - END OF NOTE
== END 2020-08-19 16:15 | disposition home or self-care (01) | DRG 862 ==
LOC: ED 10:46 → MEDSUR 17:20
PROVIDERS: ADMIT Family Medicine Adult Medicine; ATTEND Family Medicine Adult Medicine